=== PATIENT | female | born 1935 | race Caucasian/White ===

== ENCOUNTER 2016-10-20 11:29 | Emergency (ER) | payer MEDICARE, BC ==
[2016-10-20 11:46] VITALS: BMI 26.9
[2016-10-20] MEDS ORDERED: Pharmacy Review for Metformin - IV Contrast Given SCH (12:00)
[2016-10-20 13:20] LABS: AUTOMATED BASOPHIL 0.8 % (0-2); AUTOMATED EOSINOPHIL 1.4 % (0-5); AUTOMATED LYMPH 15.4 % (17-44); AUTOMATED MONOCYTE 8.5 % (3-10); AUTOMATED NEUTROPHIL 73.9 % (45-76); MPV 7.5 fL (7.4-10.4)
[2016-10-20 13:27] LABS: BLOOD UREA NITROGEN 24 MG/DL (7-17); CALCIUM 9.6 MG/DL (8.4-10.2); CALCULATED OSMOLALITY 279 MOs/Kg (270-290); CHLORIDE 105 mEq/L (98-107); GLUCOSE 100 MG/DL (70-99); SODIUM LEVEL 143 mEq/L (137-146); TOTAL PROTEIN 7.7 G/DL (6.3-8.2)
[2016-10-20 13:30] LABS: PARTIAL THROMB. TIME 24.7 SEC (22-35)
[2016-10-20 13:49] LABS: LEUKOCYTES/URINE 1+ (NEGATIVE); NITRITE/URINE NEG (NEGATIVE); URINE OCCULT BLOOD 3+ (NEG/TRACE); WBC/URINE 20-30 (0-5)
--- NOTE | 2016-10-20 13:52 | EDPRACDOC ---
- General Information Chief Complaint: Bleeding (Rectal &/or other) Stated Complaint: RECTAL BLEEDING Time Seen by Provider: 10/20/16 13:43 Information Source: Patient Mode of Arrival: Car Home Medications: Home Medications Amlodipine [Norvasc] 2.5 mg PO DAILY 12/25/15 Cholecalciferol (Vitamin D3) [Vitamin D3] 1,000 unit PO DAILY 12/25/15 Gabapentin 100 mg PO TID 12/25/15 Inulin/Chromium Picolinate [Fiber Gummies] 1 tab PO BID 12/25/15 Losartan Potassium 100 mg PO BID 12/25/15 Magnesium Oxide [Magnesium] 400 mg PO DAILY 12/25/15 Oxycodone HCl/Acetaminophen [Percocet 5-325 mg Tablet] 1 tab PO Q6H PRN Pravastatin [Pravachol] 40 mg PO HS 12/25/15 Vitamin B Complex 1 tab PO DAILY PRN 12/25/15 Calcium Carbonate/Vitamin D3 [Calcium + Vit D Tablet (600mg/200IU)] 1 tab PO DAILY 03/03/16 Simethicone [Gas Relief] 300 mg PO AC 03/03/16 Mirtazapine [Remeron] 30 mg PO QHS 03/04/16 Aspirin (Enteric Coated) [Ecotrin] 81 mg PO DAILY 10/20/16 Meloxicam 15 mg PO DAILY 10/20/16 Tabor-3 Fatty Acids/Fish Oil [Fish Oil 1,000 mg Softgel] 1 cap PO DAILY Potassium Chloride [Klor-Con M10] 10 meq PO DAILY 10/20/16 Allergies/Adverse Reactions: Allergies Allergy/AdvReac Type Severity Reaction Status Date / Time cevimeline Allergy See Verified 10/20/16 11:42 Comments lansoprazole Allergy Nausea only Verified 10/20/16 11:42 lisinopril Allergy Cough Verified 10/20/16 11:42 nalbuphine HCl [From Nubain] Allergy Nausea only Verified 10/20/16 11:42 promethazine HCl Allergy Nausea/Vomi Verified 10/20/16 11:42 [From Phenergan] ting - History of Present Illness Onset: yesterday HPI: PT COMPLAINS OF BRBPR SINCE YESTERDAY, WENT TO SEE PCP TODAY WHO REFERRED HER TO THE ED. PT DENIES COMPLAINTS, NO CP OR SOBR, NO ABD PAIN, NO N/V/D, NO HX OF RECTAL BLEEDING. Bleeding Duration: Reports: Since Onset Bleeding Description: Reports: Spontaneous Recent Use Of: Reports: None Relevant History: Reports: None Prehospital Care: Reports: None Pain Severity: None Amount of Blood: Reports: Cups Vomitus: Reports: None Stools: Reports: Bright Red Blood, Blood on Tissue Paper Associated Signs and Symptoms: Denies: Chest Pain, Abdominal Pain, Diarrhea, Epistaxis, Menorrhagia, Faintness ED Past Medical History - History Reviewed Yes Nurses notes reviewed and agree except as marked - Patient Medical History Cardiac History: Reports: Coronary Artery Disease (Apparently history of myocardial infarction but clear cardiac catheterizati), Hypertension, Congestive Heart Failure (HX ELEVATED BNP), Heart Attack (2002), Cardiac Catheterization (2002-DONE IN [place] -[facility]), Hypercholesterolemia, Pacemaker (12/25/2015) GI/ History: Reports: Renal (Kidney) Cancer (Ablated on right kidney; no chemo or radiation.), Kidney Stones (CURRENT RT SIDE ), Gastroesophageal Reflux (and frequent gas), Diverticulosis Musculoskeletal History: Reports: Arthritis, Rheumatoid Arthritis (diagnosed approx 2010. also with dry eyes.) Psychological History: Reports: Depression, Anxiety. Denies: Bipolar Disorder, Substance Use Disorder Systemic History: Reports: Anemia, Diabetes (IDDM) Surgical History: Reports: Cholecystectomy, Cardiac Catheterization (2002-DONE IN [place] -NORMAL), Hernia Surgery (REPAIR-2009), Other (Orthopedic surgeries.) Date of Last Radiation Treatment: N/A Date of Last Chemotherapy Date: N/A - Family Medical History Reports: Diabetes (BROTHER), Cancer (MOM-LUNG), Cardiac Disorders (BROTHER-[place]). Denies: Hypertension, Stroke - Social Medical History Smoking Status: Never smoker Social History: Denies: Substance Use Disorder ETOH: None Substance Abuse: None Lives In: Assisted Living EDM Review of Systems - Review of Systems Constitutional: negative: Chills, Fever, Fatigue, Weakness Eyes: negative: Blurred Vision, Double Vision Ears: negative: Drainage Throat: negative: Pain Nose: negative: Congestion, Discharge Respiratory: negative: Cough, Shortness of Breath, Wheezing Cardiovascular: negative: Chest Pain, Palpitations Gastrointestinal: Other (BRBPR). negative: Diarrhea, Nausea, Pain, Vomiting Genitourinary: negative: Dysuria, Frequency Neurological: negative: Dizziness, Headache, Numbness, Weakness Musculoskeletal: No Symptoms Reported Integumentary: No Symptoms Reported - Physical Exam Constitutional: Alert (Awake), No apparent distress Oriented to: Time, Person, Place Last recorded Vital Signs: Last Vital Signs Temp 97.9 F 10/20/16 11:42 Pulse 63 10/20/16 11:42 Resp 22 10/20/16 11:42 BP 176/79 10/20/16 11:42 Pulse Ox 95 10/20/16 11:42 Oxygen Pulse Oxygen Saturation 95 O2 Device Room Air Oxygen Flow Rate Fraction of Inspired Oxygen ( FIO2) - HEENT Head: Normal ( normocephalic) Eye Exam: Normal (PERRL, EOMI, Sclera white) Oropharynx: Normal (Pharynx:Moist without exudate,Gums-no swelling) Tympanic Membrane: Normal ENT EAC: Normal TMJ: Normal Nose: No Symptoms Reported (septum midline) Neck: Normal (FROM, trachea at midline) - Respiratory/Cardiovascular Respiratory: Normal - CTA (BBS clear to auscultation without adventitious sounds ) Cardiovascular: Normal (RRR without murmur, gallop or rub) - GI Auscultation: Normal (NABS) Palpation: Normal (Soft,No rebound or guarding, non distended) Tenderness: Non tender Anderson's Sign: Negative Rectal Exam: Blood, Heme positive stool, Rectal Tone Stool: Gross Blood (MAROON) - Musculoskeletal Back: Normal (Non-Tender) Extremities: Normal (Normal tone, Pulses 2+ No cyanosis or edema, FROM) - Integumentary Skin: Normal, Warm, Dry Lymphatics: Normal (no adenopathy) - Neurologic Memory Impaired: Normal Motor Function: Normal (Normal tone, Pulses 2+ No cyanosis or edema, FROM) Cranial Nerve: Normal (CN II-X11 intact sensation, strength 5/5) Cerebellar: Normal Mood Description: Normal Perception: Normal - Differential Diagnosis Angiodysplasia, Carcinoma, Diverticulosis, Inflammatory Bowel Dx - Re-evaluation Re-evaluation 1 Re-evaluation Time: 15:45 (NO COMPLAINTS) Re-evaluation 2 Re-evaluation Time: 16:12 (NO COMPLAINTS, PT AWARE OF MASS ON RIGHT KIDNEY, STATES WAS TOLD YEARS AGO THAT SHE NEEDED HER KIDNEY REMOVED, STATES SHE REFUSED AND "THEY BURNED IT OFF". PT AWARE WILL NEED OP FOLLOW UP.) - Results 10/20/16 13:05 10/20/16 13:05 WBC 6.4 xk/uL (3.8-10.8) 10/20/16 13:05 RBC 4.42 xM/uL (4.20-5.40) 10/20/16 13:05 Hgb 12.7 g/dL (12.0-16.0) 10/20/16 13:05 Hct 38.0 % (36-47) 10/20/16 13:05 MCV 86 fL (81-99) 10/20/16 13:05 MCH 28.7 pg (27-32) 10/20/16 13:05 MCHC 33.4 g/dl (33-36) 10/20/16 13:05 RDW 14.1 % (11.5-14.5) 10/20/16 13:05 Plt Count 267 xk/uL (130-400) 10/20/16 13:05 MPV 7.5 fL (7.4-10.4) 10/20/16 13:05 Neut % (Auto) 73.9 % (45-76) 10/20/16 13:05 Lymph % (Auto) 15.4 % (17-44) L 10/20/16 13:05 [place] % (Auto) 8.5 % (3-10) 10/20/16 13:05 Eos % (Auto) 1.4 % (0-5) 10/20/16 13:05 Baso % (Auto) 0.8 % (0-2) 10/20/16 13:05 Absolute Neuts (auto) 4.67 xk/uL (1.7-8.2) 10/20/16 13:05 Absolute Lymphs (auto) 0.96 xk/uL (0.65-4.75) 10/20/16 13:05 PT 10.4 SEC (9.2-11.2) 10/20/16 13:05 INR 1.0 10/20/16 13:05 APTT 24.7 SEC (22-35) 10/20/16 13:05 Sodium 143 mEq/L (137-146) 10/20/16 13:05 Potassium 4.9 mEq/L (3.5-5.1) 10/20/16 13:05 Chloride 105 mEq/L (98-107) 10/20/16 13:05 Carbon Dioxide 28 mMOL/L (22-33) 10/20/16 13:05 Anion Gap 15 mEq/L (8-16) 10/20/16 13:05 BUN 24 MG/DL (7-17) H 10/20/16 13:05 Creatinine 0.90 MG/DL (0.52-1.04) 10/20/16 13:05 Estimated GFR (MDRD) 60 mL/min (>=60) 10/20/16 13:05 Glucose 100 MG/DL (70-99) H 10/20/16 13:05 Calculated Osmolality 279 MOs/Kg (270-290) 10/20/16 13:05 Calcium 9.6 MG/DL (8.4-10.2) 10/20/16 13:05 Total Bilirubin 0.6 MG/DL (0.2-1.3) 10/20/16 13:05 AST 29 IU/L (14-36) 10/20/16 13:05 ALT 26 IU/L (9-52) 10/20/16 13:05 Alkaline Phosphatase 94 IU/L (55-165) 10/20/16 13:05 Total Protein 7.7 G/DL (6.3-8.2) 10/20/16 13:05 Albumin 4.3 G/DL (3.5-5.0) 10/20/16 13:05 Lab Results 10/20/16 10/20/16 10/20/16 13:05 13:05 13:05 WBC 6.4 RBC 4.42 Hgb 12.7 Hct 38.0 MCV 86 MCH 28.7 MCHC 33.4 RDW 14.1 Plt Count 267 MPV 7.5 Neut % (Auto) 73.9 Lymph % (Auto) 15.4 L [place] % (Auto) 8.5 Eos % (Auto) 1.4 Baso % (Auto) 0.8 Absolute Neuts (auto) 4.67 Absolute Lymphs (auto) 0.96 PT 10.4 INR 1.0 APTT 24.7 Sodium 143 Potassium 4.9 Chloride 105 Carbon Dioxide 28 Anion Gap 15 BUN 24 H Creatinine 0.90 Estimated GFR (MDRD) 60 Glucose 100 H Calculated Osmolality 279 Calcium 9.6 Total Bilirubin 0.6 AST 29 ALT 26 Alkaline Phosphatase 94 Total Protein 7.7 Albumin 4.3 - EKG EKG #1 EKG Time: 14:04 -: Yes EKG interpreted by me Rate: bpm: 67 [place]: RAD Rhythm: NSR Block: LBBB Hypertrophy: None Comparison: 12/26/15 (BIFASICULAR BLOCK RESOLVED) - Diagnostic Imaging CT ABD/PELVIS Image interpreted by: Radiologist CT ABDOMEN AND PELVIS WITH CONTRAST TECHNIQUE: Multidetector CT imaging of the abdomen and pelvis was performed using the standard protocol following bolus administration of intravenous contrast. CONTRAST: 100 mL of Isovue 370 intravenously. COMPARISON: CT scan of May 27, 2016 and May 24, 2016. FINDINGS: Severe multilevel degenerative disc disease is noted in the lumbar spine. Visualized lung bases are unremarkable. Status post cholecystectomy. Stable hepatic cyst is noted. Stable low density splenic lesion is noted most consistent with hemangioma. The pancreas appears normal. Mildly increased common bile duct dilatation is noted now measuring 13 mm ; this may simply be due to post cholecystectomy status, but correlation with liver function tests is recommended to rule out obstruction. Stable left adrenal adenoma is noted. Right adrenal gland appears normal. Stable right renal calculi are noted. Stable probable exophytic left renal cyst is noted. Stable fat containing complex lesion arising from upper pole of right kidney most consistent with angiomyolipoma. No hydronephrosis or renal obstruction is noted. There remains wall thickening and possible inflammatory changes around the right renal pelvis and proximal ureter which may represent chronic or acute inflammation. No renal or ureteral calculi are noted. The appendix appears normal. Stool is noted throughout the colon. Sigmoid diverticulosis is noted without inflammation. No abnormal fluid collection is noted. Uterus and ovaries are unremarkable. Atherosclerosis of abdominal aorta is noted without aneurysm formation. Urinary bladder appears normal. No significant adenopathy is noted. IMPRESSION: Atherosclerosis of abdominal aorta is noted without aneurysm formation. Status post cholecystectomy. Mildly increased common bile duct dilatation is noted which may be due to post cholecystectomy status, but correlation with liver function tests is recommended to rule out obstruction. Stable left adrenal adenoma. Stable nonobstructive right nephrolithiasis is noted. No hydronephrosis or renal obstruction is noted. There remains mild wall thickening with minimal surrounding inflammation around the right renal pelvis and proximal ureter which may represent acute or chronic inflammation. No ureteral calculi are noted. Sigmoid diverticulosis is noted without inflammation. Complex exophytic lesion seen arising from upper pole of right kidney which appears to contain fat and is not significantly changed compared to prior exams. 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 MRI would be preferred for evaluation, but patient does have pacemaker, which is generally contraindication for MRI. Decision Time to Discharge: 16:15 - Departure Disposition: Home Condition: Stable Final Diagnosis: Lower GI bleed, Right renal mass Instructions: Gastrointestinal Bleeding (ED) Education/Counseling Given To: Patient, Family Member Education/Counseling Given Regarding: Diagnosis, Treatment, Prognosis, Follow Up Referrals: Yves Castrejon MD [Primary Care Provider] - One Week Joshua Johnson MD [Staff Provider No Admit] - One Week Additional Instructions: CONTINUE YOUR USUAL MEDICATIONS BEFORE, RETURN TO THE ED FOR ANY WORSENING SYMPTOMS OR CONCERNS. YOUR RADIOGRAPHIC STUDIES ( CT Scan)SHOWED AN ABNORMALITY (MASS ON YOUR RIGHT KIDNEY ). YOU WILL NEED TO FOLLOW-UP WITH YOUR PRIMARY CARE DOCTOR IN THE NEXT COUPLE OF WEEKS TO HAVE THIS CHECKED, YOU WILL NEED A REPEAT CT SCAN IN 6 MONTHS TO REEVALUATE THIS MASS..
--- NOTE | 2016-10-20 16:06 | DIRPT ---
CLINICAL DATA: Acute lower abdominal pain and rectal bleeding. EXAM: CT ABDOMEN AND PELVIS WITH CONTRAST TECHNIQUE: Multidetector CT imaging of the abdomen and pelvis was performed using the standard protocol following bolus administration of intravenous contrast. CONTRAST: 100 mL of Isovue 370 intravenously. COMPARISON: CT scan of May 27, 2016 and May 24, 2016. FINDINGS: Severe multilevel degenerative disc disease is noted in the lumbar spine. Visualized lung bases are unremarkable. Status post cholecystectomy. Stable hepatic cyst is noted. Stable low density splenic lesion is noted most consistent with hemangioma. The pancreas appears normal. Mildly increased common bile duct dilatation is noted now measuring 13 mm ; this may simply be due to post cholecystectomy status, but correlation with liver function tests is recommended to rule out obstruction. Stable left adrenal adenoma is noted. Right adrenal gland appears normal. Stable right renal calculi are noted. Stable probable exophytic left renal cyst is noted. Stable fat containing complex lesion arising from upper pole of right kidney most consistent with angiomyolipoma. No hydronephrosis or renal obstruction is noted. There remains wall thickening and possible inflammatory changes around the right renal pelvis and proximal ureter which may represent chronic or acute inflammation. No renal or ureteral calculi are noted. The appendix appears normal. Stool is noted throughout the colon. Sigmoid diverticulosis is noted without inflammation. No abnormal fluid collection is noted. Uterus and ovaries are unremarkable. Atherosclerosis of abdominal aorta is noted without aneurysm formation. Urinary bladder appears normal. No significant adenopathy is noted. IMPRESSION: Atherosclerosis of abdominal aorta is noted without aneurysm formation. Status post cholecystectomy. Mildly increased common bile duct dilatation is noted which may be due to post cholecystectomy status, but correlation with liver function tests is recommended to rule out obstruction. Stable left adrenal adenoma. Stable nonobstructive right nephrolithiasis is noted. No hydronephrosis or renal obstruction is noted. There remains mild wall thickening with minimal surrounding inflammation around the right renal pelvis and proximal ureter which may represent acute or chronic inflammation. No ureteral calculi are noted. Sigmoid diverticulosis is noted without inflammation. Complex exophytic lesion seen arising from upper pole of right kidney which appears to contain fat and is not significantly changed compared to prior exams. 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 MRI would be preferred for evaluation, but patient does have pacemaker, which is generally contraindication for MRI. Electronically Signed By: Shankar Strickland Jr, M.D. On: 10/20/2016 16:03
[2016-10-20 16:45] VITALS: BP 138/78; PULSE 64; TEMP 97.8
== END 2016-10-20 16:43 | disposition home or self-care (01) ==
LOC: ED 11:29
DX: K92.2 Gastrointestinal hemorrhage, unspecified (principal); N28.89 Other specified disorders of kidney and ureter; I25.10 Atherosclerotic heart disease of native coronary artery without angina pectoris; I10 Essential (primary) hypertension; I50.9 Heart failure, unspecified; E78.00 Pure hypercholesterolemia, unspecified; Z95.0 Presence of cardiac pacemaker; M06.9 Rheumatoid arthritis, unspecified; E11.9 Type 2 diabetes mellitus without complications; D64.9 Anemia, unspecified; K21.9 Gastro-esophageal reflux disease without esophagitis; Z79.82 Long term (current) use of aspirin; Z79.4 Long term (current) use of insulin; Z79.899 Other long term (current) drug therapy
CPT/HCPCS: 36415; 74177; 80053; 81001; 85025; 85610; 85730; 86850; 86900; 86901; 93005; 99285; A9698